=== PATIENT | female | born 1965 | race African-American/Black ===

== ENCOUNTER 2021-06-28 13:25 | Emergency (ER) | payer MEDICARE, MEDICAID | END 2021-06-28 13:31 | disposition left against medical advice (07) | LOC: EMS 13:31 | DX: I63.9 Cerebral infarction, unspecified (principal); Z53.21 Procedure and treatment not carried out due to patient leaving prior to being seen by health care provider ==

== ENCOUNTER → 2021-06-28 | Outpatient (CLI) | payer MEDICARE, OTHER ==
[~2021-06-28] MED LIST: ACYC400T20 PO; AMLO10TA55 PO; ESOM40CA54 PO; HYDR-3421 PO; METO-408 PO; VENL-67 PO
== END | disposition home or self-care (01) ==
LOC: RADMN 14:01
PROVIDERS: ATTEND Internal Medicine
DX: I67.82 Cerebral ischemia (principal); G31.1 Senile degeneration of brain, not elsewhere classified; I63.9 Cerebral infarction, unspecified
CPT/HCPCS: 70551